=== PATIENT | female | born 1990 | race African-American/Black ===

== ENCOUNTER 2018-01-13 09:24 | Emergency (ER) | payer MEDICAID, OTHER ==
[~2018-01-13] VITALS: Ht 162.6 cm; Wt 95.0 kg
[~2018-01-13 09:24] MED LIST: XOPENEX
[2018-01-13 09:27] VITALS: BP 146/86
[2018-01-13 10:24] LABS: CLARITY URINE TURBID (CLEAR); COLOR URINE YELLOW (YELLOW); KETONES URINE NEGATIVE (NEGATIVE); LEUKOCYTE ESTERASE URINE 1+ (NEGATIVE); NITRITE URINE NEGATIVE (NEGATIVE); OCCULT BLOOD URINE NEGATIVE (NEGATIVE); PH URINE 8.5 (4.5-8.0); PROTEIN URINE TRACE (NEGATIVE); SPECIFIC GRAVITY URINE 1.017 (1.005-1.030); UROBILINOGEN URINE 0.2 E.U./dL (0.2-1.0)
[2018-01-13] MEDS ORDERED: LIDOCAINE HCL/PF 1% 10 MG/ML 5ML VIAL ONE (10:29)
[2018-01-13] MEDS ORDERED: FLUCONAZOLE 100MG TABLET PO ONE (11:45)
== END 2018-01-13 12:05 | disposition home or self-care (01) ==
LOC: ER 11:54
DX: N39.0 Urinary tract infection, site not specified (principal); B37.3 Candidiasis of vulva and vagina
CPT/HCPCS: 81003; 81025; 99283; J3490; Z7610

== ENCOUNTER 2018-05-19 12:36 | Emergency (ER) | payer MEDICAID ==
[~2018-05-19] VITALS: Ht 160 cm; Wt 104.5 kg
[2018-05-19] MEDS ORDERED: KETOROLAC 30MG/ML VIAL IM ONE (13:30)
[2018-05-19 13:46] VITALS: BP 126/89
== END 2018-05-19 15:55 | disposition home or self-care (01) ==
LOC: ER 12:36
DX: M79.10 Myalgia, unspecified site (principal); J45.909 Unspecified asthma, uncomplicated; V49.49XA Driver injured in collision with other motor vehicles in traffic accident, initial encounter; Y93.89 Activity, other specified; Y92.89 Other specified places as the place of occurrence of the external cause; Y99.8 Other external cause status
CPT/HCPCS: 81025; 96372; 99283; J1885